=== PATIENT | female | born 1935 | race Two or more races ===

== ENCOUNTER 2024-03-03 23:01 | Inpatient (IN) | payer OTHER, MEDICAID ==
[~2024-03-03] VITALS: Ht 154.9 cm; Wt 81.2 kg
[2024-03-03 23:42] VITALS: PULSE 101; RESP 18; O2SAT 95
[2024-03-04] VITALS (11 sets, daily range): BP systolic 122–152; BP diastolic 33–73; PULSE 74–97; RESP 15–20; TEMP 97.2–98.8; O2SAT 90–97
[2024-03-04 00:23] LABS: Basophils # (auto) 0.1 10 ^3/uL (0-0.2); Eosinophils # (auto) 0.1 10 ^3/uL (0-0.8); Mean Corpuscular Hgb Conc. 32.5 g/dL (32.0-36.0); Monocytes # (auto) 0.5 10 ^3/uL (0-1.3)
[2024-03-04 00:25] LABS: Basophils % (auto) 0.9 % (0.0-2.0); Eosinophils % (auto) 1.5 % (0.0-7.0); Hematocrit 35.3 % (36.0-46.0); Hemoglobin 11.5 g/dL (12.2-16.2); Lymphocytes # (auto) 0.7 10 ^3/uL (0.4-5.4); Lymphocytes % (auto) 8.4 % (10.0-50.0); Mean Corpuscular Volume 80.1 fL (80.0-100.0); Monocytes % (auto) 5.8 % (0.0-12.0); Neutrophils # (auto) 7.2 10 ^3/uL (1.6-8.6); Neutrophils % (auto) 83.4 % (37.0-80.0); Red Cell Distribution Width 16.8 % (11.8-14.3); White Blood Cell 8.6 10^3/uL (4.4-10.8)
[2024-03-04 00:40] LABS: BUN/Creatinine Ratio 13.5 (10.0-20.0); Blood Urea Nitrogen 17 mg/dL (9-23); Glucose 248 mg/dL (74-106)
[2024-03-04 00:49] LABS: Chloride 103 mmol/L (98-107); Potassium 3.7 mmol/L (3.5-5.1); Sodium 138 mmol/L (136-145)
[2024-03-04 00:51] LABS: Anion Gap 6 (5-15); Calcium 8.6 mg/dL (8.7-10.4); Carbon Dioxide 29 mmol/L (20-30)
[2024-03-04] MEDS ORDERED: ALBUTEROL SULF 2.5 MG/0.5ML(0.5%) NEB SOLN NEB PRN (04:00)
[2024-03-04] MEDS ORDERED: MORPHINE SULFATE INJ 2 MG/ml SYRG IV PRN (04:00)
[2024-03-04] MEDS ORDERED: DEXTROSE (50%) 50ML SYRG IV PRN (04:00)
[2024-03-04] MEDS ORDERED: ONDANSETRON HCL 4 MG/2 ML VIAL IV PRN (04:00)
[2024-03-04] MEDS ORDERED: DOCUSATE SOD 100 MG CAP PO PRN (04:00)
[2024-03-04] MEDS ORDERED: IPRATROPIUM BROM 0.5 MG/2.5ML INH SOL NEB PRN (04:00)
[2024-03-04] MEDS ORDERED: NITROGLYCERIN 0.4 MG SL TAB SL PRN (04:00)
[2024-03-04 04:07] LABS: Urine Amorphous Crystal FEW /hpf (None Seen); Urine Bacteria MANY /hpf (None Seen); Urine Blood TRACE /uL (Negative); Urine Clarity Turbid (Clear); Urine Color Colorless (Yellow); Urine Mucus FEW (None Seen); Urine Protein, UAD TRACE (Negative); Urine Specific Gravity 1.009 (1.001-1.035); Urine Urobilinogen 3 mg/dL (Negative); Urine WBC 250 /hpf (0 - 5); Urine WBC Clumps PRESENT /hpf (None Seen); Urine pH 5.5 (5.0-9.0)
[2024-03-04 05:43] LABS: Basophils # (auto) 0.1 10 ^3/uL (0-0.2); Basophils % (auto) 1.1 % (0.0-2.0); Eosinophils # (auto) 0.2 10 ^3/uL (0-0.8); Eosinophils % (auto) 2.5 % (0.0-7.0); Hematocrit 34.5 % (36.0-46.0); Lymphocytes # (auto) 1.4 10 ^3/uL (0.4-5.4); Lymphocytes % (auto) 19.8 % (10.0-50.0); Mean Corpuscular Hemoglobin 25.6 pg (28.0-32.0); Mean Corpuscular Hgb Conc. 31.9 g/dL (32.0-36.0); Mean Corpuscular Volume 80.2 fL (80.0-100.0); Monocytes # (auto) 0.5 10 ^3/uL (0-1.3); Monocytes % (auto) 7.3 % (0.0-12.0); Neutrophils % (auto) 69.3 % (37.0-80.0); Red Cell Distribution Width 16.8 % (11.8-14.3); White Blood Cell 7.2 10^3/uL (4.4-10.8)
[2024-03-04 05:50] LABS: Chloride 103 mmol/L (98-107); Potassium 3.7 mmol/L (3.5-5.1); Sodium 140 mmol/L (136-145)
[2024-03-04 05:51] LABS: Anion Gap 3 (5-15); Calcium 8.6 mg/dL (8.5-10.1); Carbon Dioxide 34 mmol/L (20-30)
[2024-03-04 05:56] LABS: BUN/Creatinine Ratio 14.7 (10.0-20.0); Blood Urea Nitrogen 17 mg/dL (9-23); Glucose 153 mg/dL (74-106)
[2024-03-04] MEDS: InsuLIN REG 1unit/0.01ml Soln (100units/ml) SC SCH (07:00)
[2024-03-04] MEDS: ACCU-CHEK COMFORT CURVE STRIP VI SCH (07:24)
[2024-03-04 08:43] LABS: Amphetamine Screen, Urine Neg (NEGATIVE)
[2024-03-04 08:45] LABS: Barbiturate Scree,Urine Neg (NEGATIVE); Benzodiazephine Screen, Urine Neg (NEGATIVE); Cannabinoid Screen, Urine Neg (NEGATIVE); Cocaine Screen, Urine Neg (NEGATIVE); Opiate Scree,Urine Neg (NEGATIVE); Phencyclidine Screen, Urine Neg (NEGATIVE)
[2024-03-04] MEDS ORDERED: AZIT-74 PO (11:24)
[2024-03-04] MEDS ORDERED: FLUT100M IN (11:27)
[2024-03-04] MEDS: ENOXAPARIN SOD 40 MG/0.4 ML SYRINGE SC SCH (11:59)
[2024-03-04] MEDS: cefTRIAXone 1GM/50ML D5W 50 ML IV SCH (11:59)
[2024-03-04] MEDS ORDERED: ASPI1TAB20 PO (14:38)
[2024-03-04] MEDS ORDERED: GLIP10TA9 PO (14:38)
[2024-03-04] MEDS ORDERED: GABA-1308 PO (14:40)
[2024-03-04] MEDS ORDERED: OMEP20TA PO (14:40)
[2024-03-04] MEDS ORDERED: METO-289 PO (14:41)
[2024-03-04] MEDS ORDERED: ATOR-507 PO (14:41)
[2024-03-04] MEDS ORDERED: OXYB5TAB14 GT (14:43)
[2024-03-04] MEDS ORDERED: HYDR25TA4 PO (14:44)
[2024-03-05 01:00] VITALS: BP 137/63; PULSE 81; RESP 20; TEMP 98.2; O2SAT 96
[2024-03-05 05:00] VITALS: BP 148/60; PULSE 90; RESP 20; TEMP 98.4; O2SAT 91
[2024-03-05 06:16] LABS: Anion Gap 4 (5-15); Calcium 9.1 mg/dL (8.7-10.4); Carbon Dioxide 34 mmol/L (20-30); Chloride 103 mmol/L (98-107); Potassium 3.6 mmol/L (3.5-5.1); Sodium 141 mmol/L (136-145)
[2024-03-05 06:19] LABS: Basophils # (auto) 0.1 10 ^3/uL (0-0.2); Monocytes # (auto) 0.5 10 ^3/uL (0-1.3); Neutrophils # (auto) 3.8 10 ^3/uL (1.6-8.6); Nucleated Red Blood Cells % 0.2 %
[2024-03-05 06:21] LABS: Basophils % (auto) 1.3 % (0.0-2.0); Eosinophils # (auto) 0.4 10 ^3/uL (0-0.8); Eosinophils % (auto) 6.2 % (0.0-7.0); Hematocrit 37.6 % (36.0-46.0); Hemoglobin 11.9 g/dL (12.2-16.2); Lymphocytes # (auto) 1.1 10 ^3/uL (0.4-5.4); Lymphocytes % (auto) 19.5 % (10.0-50.0); Mean Corpuscular Hemoglobin 25.6 pg (28.0-32.0); Mean Corpuscular Hgb Conc. 31.7 g/dL (32.0-36.0); Mean Corpuscular Volume 80.8 fL (80.0-100.0); Monocytes % (auto) 7.9 % (0.0-12.0); Neutrophils % (auto) 65.1 % (37.0-80.0); Red Blood Cells 4.66 10^6/uL (4.0-5.20); Red Cell Distribution Width 17.1 % (11.8-14.3); White Blood Cell 5.8 10^3/uL (4.4-10.8)
[2024-03-05 06:22] LABS: BUN/Creatinine Ratio 12.4 (10.0-20.0); Blood Urea Nitrogen 13 mg/dL (9-23); Glucose 100 mg/dL (74-106)
[2024-03-05 07:37] VITALS: O2SAT 93
[2024-03-05 08:00] VITALS: BP 146/84; PULSE 104; PULSE 97; RESP 20; RESP 22; TEMP 98.7; O2SAT 93; O2SAT 94
[2024-03-05 12:00] VITALS: BP 153/66; PULSE 103; RESP 20; TEMP 98.7; O2SAT 94
[2024-03-05] MEDS: SODIUM CHLORIDE 0.9% 250 ML IV SCH (13:30)
[2024-03-05 16:00] VITALS: BP 146/60; PULSE 100; RESP 20; TEMP 97.7; O2SAT 97
[2024-03-05] MEDS: ACETAMINOPHEN 325 MG TAB PO PRN (16:48)
== END 2024-03-05 18:42 | disposition home or self-care (01) | DRG 189 ==
LOC: ER 23:01 → TELE 03-04 04:00 → TELE-EAST 03-04 08:19
PROVIDERS: ADMIT Nurse Practitioner Family; ATTEND Nurse Practitioner Family
DX: J96.21 Acute and chronic respiratory failure with hypoxia (principal); G93.41 Metabolic encephalopathy; J44.1 Chronic obstructive pulmonary disease with (acute) exacerbation; N39.0 Urinary tract infection, site not specified; E11.65 Type 2 diabetes mellitus with hyperglycemia; E66.9 Obesity, unspecified; F03.90 Unspecified dementia, unspecified severity, without behavioral disturbance, psychotic disturbance, mood disturbance, and anxiety; I10 Essential (primary) hypertension; Z99.81 Dependence on supplemental oxygen; Z79.82 Long term (current) use of aspirin; Z79.899 Other long term (current) drug therapy; Z68.33 Body mass index [BMI] 33.0-33.9, adult; Z86.73 Personal history of transient ischemic attack (TIA), and cerebral infarction without residual deficits
CPT/HCPCS: 36415; 71045; 80048; 80307; 81001; 82306; 82607; 82962; 83036; 83880; 84443; 84484; 85025; 87040; 87086; 93005; 93306; 96365; 96372; 97110; 97116; 97163; 97530; G0378; J1815

== ENCOUNTER 2024-08-21 20:16 | Inpatient (IN) | payer OTHER, MEDICAID ==
[~2024-08-21] VITALS: Ht 160 cm; Wt 88.4 kg
[~2024-08-21 20:16] MED LIST: ASPI1TAB20 PO; ATOR-507 PO; AZIT-74 PO; FLUT100M IN; GABA-1308 PO; GLIP10TA9 PO; HYDR25TA4 PO; METO-289 PO; OMEP20TA PO; OXYB5TAB14 GT
--- NOTE | 2024-08-21 20:47 | ED.PDOC ---
SOB-HPI HPI Comments 89-year-old female who came to ER via EMS for shortness of breath. Patient does have history of hypertension, dyslipidemia, and asthma. Was noted by family members that patient has been having flu-like symptoms past 36 hours, fever, chills, weakness, myalgia, productive cough, and progressively worsening shortness of breath. Patient was noted to be saturating 88% on room air. Patient was given breathing treatments while EN route to the emergency room Chief Complaint: Shortness of Breath Time Seen by MD: 20:46 Reviewed notes: Records Administrator Notes Information Source: Patient, Emergency Med Personnel Mode of Arrival: EMS Severity: Moderate Timing: Hours Duration: Intermittent Context: With Light Exertion PE Risk Factors: None History of: None Prehospital treatment: Breathing Tx Modifying Factors: Nothing Associated Signs and Symptoms: Fever, Cough If cough with SOB: Productive Past Medical History PAST MEDICAL HISTORY: Arthritis, Asthma, CVA, High Lipids, HTN Surgical History: Denies all surgeries BID CLERK History: No Pertinent BID CLERK History Family History Family History: Reviewed,noncontributory to illness Social History Smoker: Non-Smoker Alcohol: Denies ETOH Use Drugs: Denies Drug Use Lives In: Home Constitutional: reports: fatigue, malaise, weakness; denies: chills, diaphoresis, fever, sweats, others EENTM: denies: blurred vision, double vision, ear bleeding, ear discharge, ear drainage, ear pain, ear ringing, eye pain, eye redness, hearing loss, mouth pain, mouth swelling, nasal discharge, nose bleeding, nose congestion, nose pain, photophobia, tearing, throat pain, throat swelling, voice changes, others Respiratory: reports: cough, SOB at rest, shortness of breath, SOB with excertion; denies: hemoptysis, orthopnea, stridor, wheezing, others Cardiovascular: denies: chest pain, dizzy spells, diaphoresis, Dyspnea on exertion, edema, irregular heart beat, left arm pain, lightheadedness, palpitations, PND, syncope, others Gastrointestinal: denies: abdomen distended, abdominal pain, blood streaked bowels, constipated, diarrhea, dysphagia, difficulty swallowing, hematemesis, melena, nausea, poor appetite, poor fluid intake, rectal bleeding, rectal pain, vomiting, others Genitourinary: denies: abnormal vagina bleeding, burning, dyspareunia, dysuria, flank pain, frequency, hematuria, incontinence, pain, , vagina discharge, urgency, others Neurological: denies: dizziness, fainting, headache, left sided numbness, left sided weakness, numbness, paresthesia, pre-existing deficit, right sided numbness, right sided weakness, seizure, speech problems, tingling, tremors, weakness, others Musculoskeletal: denies: back pain, gout, joint pain, joint swelling, muscle pain, muscle stiffness, neck pain, others Integumetry: denies: bruises, change in color, change in hair/nails, dryness, laceration, lesions, lumps, rash, wounds, others Allergic/Immunocompromised: denies: Difficulty Healing, Frequent Infections, Hives, Itching, others Hematologic/Lymphatic: denies: anemia, blood clots, easy bleeding, easy bruising, swollen glands, others Endocrine: denies: excessive hunger, excessive sweating, excessive thirst, excessive urination, flushing, intolerance to cold, intolerance to heat, unexplained weight gain, unexplained weight loss, others Psychiatric: denies: anxiety, bipolar disorder, depression, hopeless, panic disorder, schizophrenia, sleepless, suicidal, others Physical Exam General Appearance: No Apparent Distress, Normal HEENT: Normal ENT Inspection, Pharynx Normal, TMs Normal Neck: Full Range of Motion, Non-Tender, Normal, Normal Inspection Respiratory: Chest Non-Tender, Lungs Clear, No Accessory Muscle Use, No Respiratory Distress, Normal Breath Sounds Cardiovascular: No Edema, No JVD, No Murmur, No Gallop, Normal Peripheral Pulses, Regular Rate/Rhythm Breast Exam: Deferred Gastrointestinal: No Organomegaly, Non Tender, No Pulsatile Mass, Normal Bowel Sounds, Soft Genitalia: Deferred Pelvic: Deferred Rectal: Deferred Extremities: No calf tenderness, Normal capillary refill, Normal inspection, Normal range of motion, Non-tender, No pedal edema Musculoskeletal : Apperance: Normal Neurologic: Alert, floor covering printer assistant II-XII nml as Tested, No Motor Deficits, Normal Affect, Normal Mood, No Sensory Deficits Cerebellar Function: Normal Reflexes: Normal Skin: Dry, Normal Color, Warm Lymphatic: No Adenopathy Was a procedure done? Was a procedure done?: No Differential Dx Differential Diagnosis: Asthma, Bronchitis, CHF, COPD, Myocardial infarction, Pneumonia, Respiratory Distress, Pharyngitis, URI, Other (Influenza, COVID-19) X-Ray, Labs, Meds, VS Vital Signs Date Time Temp Pulse Resp B/P (MAP) Pulse Ox O2 Delivery O2 Flow Rate FiO2 08/21/24 20:25 99.0 100 22 158/68 (98) 97 08/21/24 20:24 112 Lab Test 08/21/24 23:00 08/21/24 21:50 08/21/24 20:43 Range/Units Influenza Type A Antigen Negative Negative Influenza Type B Antigen Negative Negative Troponin I High Sensitivity 20 21 </=34 ng/L White Blood Count 6.8 4.4-10.8 10^3/uL Red Blood Count 4.50 4.0-5.20 10^6/uL Hemoglobin 11.9 L 12.2-16.2 g/dL Hematocrit 37.0 36.0-46.0 % Mean Corpuscular Volume 82.2 80.0-100.0 fL Mean Corpuscular Hemoglobin 26.3 L 28.0-32.0 pg Mean Corpuscular Hemoglobin Concent 32.0 32.0-36.0 g/dL Red Cell Distribution Width 16.3 H 11.8-14.3 % Platelet Count 226 140-450 10^3/uL Mean Platelet Volume 8.5 6.9-10.8 fL Neutrophils (%) (Auto) 81.3 H 37.0-80.0 % Lymphocytes (%) (Auto) 10.7 10.0-50.0 % Monocytes (%) (Auto) 6.8 0.0-12.0 % Eosinophils (%) (Auto) 0.5 0.0-7.0 % Basophils (%) (Auto) 0.7 0.0-2.0 % Neutrophils # (Auto) 5.5 1.6-8.6 10 ^3/uL Lymphocytes # (Auto) 0.7 0.4-5.4 10 ^3/uL Monocytes # (Auto) 0.5 0-1.3 10 ^3/uL Eosinophils # (Auto) 0 0-0.8 10 ^3/uL Basophils # (Auto) 0 0-0.2 10 ^3/uL Nucleated Red Blood Cells 0.1 % Sodium Level 141 136-145 mmol/L Potassium Level 3.6 3.5-5.1 mmol/L Chloride Level 103 98-107 mmol/L Carbon Dioxide Level 32 H 20-31 mmol/L Anion Gap 6 5-15 Blood Urea Nitrogen 17 9-23 mg/dL Creatinine 1.44 H 0.550-1.02 mg/dL Glomerular Filtration Rate Calc 35 >90 mL/min BUN/Creatinine Ratio 11.8 10.0-20.0 Serum Glucose 165 H 74-106 mg/dL Calcium Level 8.9 8.7-10.4 mg/dL Total Bilirubin 0.5 0.2-1.0 mg/dL Aspartate Amino Transferase (AST) 15 13-40 U/L Alanine Aminotransferase (ALT) < 9 7-40 U/L Alkaline Phosphatase 97 46-116 U/L B-Type Natriuretic Peptide 375.99 0-100 pg/mL Total Protein 6.9 5.7-8.2 g/dL Albumin 4.0 3.2-4.8 g/dL Current Medications Medications (Trade) Dose Ordered Sig/Luiz Route Start Time Stop Time Status Last Admin Prednisone 40 mg ONCE ONCE PO 08/21/24 20:45 08/21/24 20:46 DC 08/21/24 21:21 Albuterol (Ventolin Medneb) 5 mg ONCE ONCE NEB 08/21/24 20:45 08/21/24 20:46 DC 08/21/24 20:55 Time of 1ST Reevaluation: 20:43 Reevaluation 1ST: Unchanged Time of 2ND Reevaluation: 00:00 Reevaluation 2ND: Unchanged Patient Education/Counseling: Diagnosis, Treatment Family Education/Counseling: No Family Present Departure 1 Departure Time of Disposition: 00:00 Impression: Primary Impression: Respiratory failure with hypoxia Additional Impressions: Asthma exacerbation Pneumonia Disposition: ADMITTED INPATIENT Admit to: Med Surg Condition: Guarded Critical Care Note Critical Care Time?: Yes (35 min-critical care time only) Critical care comment: Shortness of breath Total critical care time: Approximately 36 minutes Due to a high probability of clinically significant, life threatening deterioration, the patient required my highest level of preparedness to i ntervene emergently and I personally spent this critical care time directly and personally managing the patient. This critical care time included obtaining a history; examining the patient; pulse oximetry; ordering and review of studies; arranging urgent treatment with development of a management plan; evaluation of patient's response to treatment; frequent reassessment; and, discussions with other providers. This critical care time was performed to assess and manage the high probability of imminent, life-threatening deterioration that could result in multi-organ failure. It was exclusive of separately billable procedures and treating other patients. Stability Stability form required: No Heart Score Heart Score: Heart Score Response (Comments) Value History Moderate Suspicious 1 EKG Repolarization Disturb 1 Age >65 2 Risk Factors >3 or Hx ASHD 2 Troponin Normal limit 0 Total 6 I personally scribed for JAIME COPELAND MD ([email or web address]) on 08/21/24 at 20:47. Electronically submitted by Marcelo Phelan ([email or web address]). JAIME COPELAND MD Aug 21, 2024 20:47
[2024-08-21] MEDS: ALBUTEROL SULF 2.5 MG/0.5ML(0.5%) NEB SOLN NEB ONE (20:55)
[2024-08-21 20:59] LABS: Eosinophils # (auto) 0 10 ^3/uL (0-0.8); Eosinophils % (auto) 0.5 % (0.0-7.0); Lymphocytes # (auto) 0.7 10 ^3/uL (0.4-5.4); Monocytes # (auto) 0.5 10 ^3/uL (0-1.3); Nucleated Red Blood Cells % 0.1 %
[2024-08-21 21:01] LABS: Basophils # (auto) 0 10 ^3/uL (0-0.2); Basophils % (auto) 0.7 % (0.0-2.0); Hemoglobin 11.9 g/dL (12.2-16.2); Lymphocytes % (auto) 10.7 % (10.0-50.0); Mean Corpuscular Hemoglobin 26.3 pg (28.0-32.0); Mean Corpuscular Volume 82.2 fL (80.0-100.0); Monocytes % (auto) 6.8 % (0.0-12.0); Neutrophils # (auto) 5.5 10 ^3/uL (1.6-8.6); Neutrophils % (auto) 81.3 % (37.0-80.0); Platelet Count (auto) 226 10^3/uL (140-450); Red Cell Distribution Width 16.3 % (11.8-14.3); White Blood Cell 6.8 10^3/uL (4.4-10.8)
--- NOTE | 2024-08-21 21:07 | DVH ---
CHEST RADIOGRAPH Indication: SOB Technique: Single frontal view of the chest was obtained Comparison: XY CHEST PORTABLE on DOS: 03/04/24 FINDINGS: Lines and Tubes: None Lungs: No focal consolidation. Bronchovascular crowding due to low lung volumes bibasilar linear dens ities. Pleura: No effusion. No pneumothorax. Cardiomediastinal contours: Mild cardiomegaly with moderate atherosclerotic calcification and uncoili ng of the aorta. Bones: No acute osseous abnormality. IMPRESSION: Bronchovascular crowding due to low lung volumes with bibasilar atelectasis. Underlying mild pulmona ry vascular congestion can not be excluded.
[2024-08-21] MEDS: predniSONE 20 MG TAB PO ONE (21:21)
[2024-08-21 21:28] LABS: Alkaline Phosphatase 97 U/L (46-116); Anion Gap 6 (5-15); Aspartate Aminotransferase 15 U/L (13-40); BUN/Creatinine Ratio 11.8 (10.0-20.0); Bilirubin, Total 0.5 mg/dL (0.2-1.0); Blood Urea Nitrogen 17 mg/dL (9-23); Calcium 8.9 mg/dL (8.7-10.4); Chloride 103 mmol/L (98-107); Potassium 3.6 mmol/L (3.5-5.1); Sodium 141 mmol/L (136-145); Total Protein 6.9 g/dL (5.7-8.2)
[2024-08-21 21:29] LABS: Alanine Aminotransferase < 9 U/L (7-40); Carbon Dioxide 32 mmol/L (20-31); Glucose 165 mg/dL (74-106)
[2024-08-21 23:55] LABS: Rapid Influenza A Negative (Negative); Rapid Influenza B Negative (Negative)
[2024-08-22] VITALS (17 sets, daily range): BP systolic 109–164; BP diastolic 28–57; PULSE 103–121; RESP 16–29; TEMP 99.4–100.4; O2SAT 92–99
[2024-08-22] MEDS ORDERED: MORPHINE SULFATE INJ 2 MG/ml SYRG IV PRN (01:00)
[2024-08-22] MEDS ORDERED: DOCUSATE SOD 100 MG CAP PO PRN (01:00)
[2024-08-22] MEDS ORDERED: NITROGLYCERIN 0.4 MG SL TAB SL PRN (01:00)
[2024-08-22] MEDS ORDERED: ONDANSETRON HCL 4 MG/2 ML VIAL IV PRN (01:00)
[2024-08-22] MEDS: ALBUTEROL SULF 2.5 MG/0.5ML(0.5%) NEB SOLN NEB SCH (02:20)
[2024-08-22] MEDS: IPRATROPIUM BROM 0.5 MG/2.5ML INH SOL NEB SCH (02:21)
--- NOTE | 2024-08-22 03:17 | DVHHP2 ---
JACLYN JOHN MINE EQUIPMENT DESIGN ENGINEER 08/22/24 0317: History of Present Illness Reason for Visit: flu like symptoms History of Present Illness Information in this HPI is limited due to patient's current cognitive status.Acquired with the assistance of the patient's daughter at the bedside. 81-year-old female history of hypertension, dementia, DM, , Intermittent oxygen use Present with complaints of flu like symptoms, Muscle aches, Generalized weakness, Hypoxia Times two days. Sick Contact was endorsed. Patient daughter states, She checked the patient's oxygen saturation And it was lower than normal. Started her on oral prednisone And zithromax provided by her University Services Program Associate. This time there are no complaints of chest pain, nausea, vomiting, diarrhea. Cardiovascular: HTN Pulmonary: Asthma WIRE PREPARATION WORKER: Dementia Endocrine: Diabetes Smoke: No ALCOHOL: none Drugs: None Lives: with Family Review of Systems Constitutional: Yes: Weakness, Malaise; No: Fever, Chills, Sweats, Other Eyes: No: Pain, Vision change, Conjunctivae inflammation, Eyelid inflammation, Other, Redness ENT: No: Ear pain, Ear discharge, Nose pain, Nose discharge, Nose congestion, Mouth pain, Mouth swelling, Throat pain, Throat swelling, Other Respiratory: Cough, Shortness of breath; No: Dry, SOB with excertion, Wheezing, Hemoptysis, Pleuritic Pain, Sputum, Wheezing, Other Cardiovascular: No: Chest Pain, Palpitations, Orthopnea, Paroxysmal Noc. Dyspnea, Edema, Lt Headedness, Other Gastrointestinal: No: Nausea, Vomiting, Abdominal Pain, Diarrhea, Constipation, Melena, Hematochezia, Other Genitourinary: No Dysuria, No Frequency, No Incontinence, No Hematuria, No Retention, No Other Musculoskeletal: No: other, neck pain, shoulder pain, arm pain, back pain, hand pain, leg pain, foot pain Skin: No: Rash, Lesions, Jaundice, Bruising, Other Neurological: No: Weakness, Numbness, Incoordination, Change in speech, Confusion, Seizures, Other Allergies: Coded Allergies: NO KNOWN ALLERGIES (Unverified , 03/04/24) Medications Current Medications Medications Dose Ordered Sig/Luiz Route Start Time Stop Time Status Last Admin Dose Admin Docusate Sodium 100 mg BIDPRN PRN PO 08/22/24 01:00 Acetaminophen/ Hydrocodone Bitart 1 tab Q4HP PRN PO 08/22/24 01:00 Ondansetron HCl 4 mg Q4HP PRN IV 08/22/24 01:00 UNV Nitroglycerin 0.4 mg Q5MINP PRN SL 08/22/24 01:00 Morphine Sulfate 2 mg Q30M PRN IV 08/22/24 01:00 Pantoprazole Sodium 40 mg DAILY IV 08/22/24 10:00 Prednisone 40 mg DAILY PO 08/22/24 10:00 Doxycycline Monohydrate 100 mg BID PO 08/22/24 10:00 Albuterol 2.5 mg Q4HR NEB 08/22/24 02:00 08/22/24 02:20 2.5 MG Ipratropium [place] 0.5 mg Q4HR NEB 08/22/24 02:00 08/22/24 02:21 0.5 MG Heparin Sodium (Porcine) 5,000 units Q12HR SC 08/22/24 10:00 UNV Exam Vital Signs Vital Signs Date Time Temp Pulse Resp B/P (MAP) Pulse Ox O2 Delivery O2 Flow Rate FiO2 08/22/24 02:23 103 17 99 08/22/24 02:17 Nasal Cannula* 2 28 08/21/24 20:25 99.0 158/68 (98) General Appearance: Alert, mild distress HEENT: Atraumatic, PERRLA, EOMI Respiratory: Normal air movement Cardiovascular: Regular rate, Normal S1, Normal S2 Abdominal: Normal bowel sounds, Soft, No tenderness Extremities: No cyanosis, No edema Skin: No breakdown Neuro: Other (At baseline) Labs/Xrays Labs Test 08/21/24 23:00 08/21/24 21:50 08/21/24 20:43 Range/Units Influenza Type A Antigen Negative Negative Influenza Type B Antigen Negative Negative Troponin I High Sensitivity 20 </=34 ng/L White Blood Count 6.8 4.4-10.8 10^3/uL Red Blood Count 4.50 4.0-5.20 10^6/uL Hemoglobin 11.9 L 12.2-16.2 g/dL Hematocrit 37.0 36.0-46.0 % Mean Corpuscular Volume 82.2 80.0-100.0 fL Mean Corpuscular Hemoglobin 26.3 L 28.0-32.0 pg Mean Corpuscular Hemoglobin Concent 32.0 32.0-36.0 g/dL Red Cell Distribution Width 16.3 H 11.8-14.3 % Platelet Count 226 140-450 10^3/uL Mean Platelet Volume 8.5 6.9-10.8 fL Neutrophils (%) (Auto) 81.3 H 37.0-80.0 % Lymphocytes (%) (Auto) 10.7 10.0-50.0 % Monocytes (%) (Auto) 6.8 0.0-12.0 % Eosinophils (%) (Auto) 0.5 0.0-7.0 % Basophils (%) (Auto) 0.7 0.0-2.0 % Neutrophils # (Auto) 5.5 1.6-8.6 10 ^3/uL Lymphocytes # (Auto) 0.7 0.4-5.4 10 ^3/uL Monocytes # (Auto) 0.5 0-1.3 10 ^3/uL Eosinophils # (Auto) 0 0-0.8 10 ^3/uL Basophils # (Auto) 0 0-0.2 10 ^3/uL Nucleated Red Blood Cells 0.1 % Sodium Level 141 136-145 mmol/L Potassium Level 3.6 3.5-5.1 mmol/L Chloride Level 103 98-107 mmol/L Carbon Dioxide Level 32 H 20-31 mmol/L Anion Gap 6 5-15 Blood Urea Nitrogen 17 9-23 mg/dL Creatinine 1.44 H 0.550-1.02 mg/dL Glomerular Filtration Rate Calc 35 >90 mL/min BUN/Creatinine Ratio 11.8 10.0-20.0 Serum Glucose 165 H 74-106 mg/dL Calcium Level 8.9 8.7-10.4 mg/dL Total Bilirubin 0.5 0.2-1.0 mg/dL Aspartate Amino Transferase (AST) 15 13-40 U/L Alanine Aminotransferase (ALT) < 9 7-40 U/L Alkaline Phosphatase 97 46-116 U/L B-Type Natriuretic Peptide 375.99 0-100 pg/mL Total Protein 6.9 5.7-8.2 g/dL Albumin 4.0 3.2-4.8 g/dL Assessment/Plan Assessment/Plan Acute on chronic respiratory failure with hypoxia CV 19 r/o Generalized weakness DM Plan Admit telemetry Consult pulmonology. Bronchodilators. As needed supplemental O2 to maintain O2 saturation greater Umu 93%. RT monitoring. Covid swab pending. Blood glucose checks ACHS with regular insulin sliding scale coverage for optimal glycemic management. Physical therapy evaluation GI ppx protonix / DVT ppx heparin sq Plan discussed with: Patient My Orders Orders - JACLYN JOHN NP Procedure Category Date Status Time Admit ADMIT 08/22/24 Transmitted 00:55 Code Status CODE 08/22/24 Transmitted 00:55 Vital Signs SWATI 08/22/24 In Process 00:55 Review Orders With SWATI 08/22/24 In Process Adm.Md 00:55 Encourage Activity As SWATI 08/22/24 In Process Tolerate 00:55 Consistent DIET 08/22/24 Transmitted Carb(Ccho)Diabetes Breakfast Oxygen By Face Mask RT 08/22/24 Transmitted 00:55 Docusate Sodium PHA 08/22/24 In Process Capsule (Colace 01:00 Notify Of Changes BANNER 08/22/24 In Process From Base 00:55 Advance Directive SWATI 08/22/24 In Process 00:55 Basic Metabolic Panel LAB 08/22/24 Logged 05:00 Basic Metabolic Panel LAB 08/23/24 Verified 05:00 Basic Metabolic Panel LAB 08/24/24 Verified 05:00 Complete Blood Count LAB 08/22/24 Logged 05:00 Complete Blood Count LAB 08/23/24 Verified 05:00 Complete Blood Count LAB 08/24/24 Verified 05:00 Patient Condition ORDERS 08/22/24 Transmitted 00:55 Allergies SWATI 08/22/24 In Process 00:55 Hydrocodone-Acet PHA 08/22/24 In Process 5/325mg Tab ([place] 01:00 Ondansetron Hcl PHA 08/22/24 Pending (Zofran) 01:00 Sequential SWATI 08/22/24 In Process Compression Device Nitroglycerin PHA 08/22/24 In Process Sublingual (Ntrostat 01:00 Morphine Sulfate PHA 08/22/24 In Process Injection 01:00 Stat Ekg For Chest BANNER 08/22/24 In Process Pain 00:55 Notify Of Changes BANNER 08/22/24 In Process From Base 00:55 Extractor Puller For BANNER 08/22/24 In Process 24 Hours 00:55 Emergency Dysrhythmia BANNER 08/22/24 In Process Protocol 00:55 Rhythm Strips Once SWATI 08/22/24 In Process Every Shift 00:55 Oxygen By Nasal RT 08/22/24 Transmitted Cannula 00:55 Pantoprazole PHA 08/22/24 In Process (Protonix) 10:00 Prednisone Tablet PHA 08/22/24 In Process 10:00 Doxycycline Tablet PHA 08/22/24 In Process (Vibramycin Tablet) 10:00 Covid19 Antigen Alisha LAB 08/22/24 Logged Albuterol Medneb PHA 08/22/24 In Process (Ventolin Medneb) 02:00 Ipratropium Medneb PHA 08/22/24 In Process (Atrovent Medneb) 02:00 *Consult CONS 08/22/24 Transmitted / 00:55 Heparin Sodium PHA 08/22/24 Pending (Porcine) 10:00 Date of Service: Aug 22, 2024 Billing Provider: JACOB FOSS MD Common Visit Codes: NOT BILLABLE JACOB FOSS MD 08/22/24 1711: Review of Systems Allergies: Coded Allergies: NO KNOWN ALLERGIES (Unverified , 03/04/24) Additional Comments Additional Comments Additional Comments 89-year-old female with a known history of Alzheimer dementia, diabetes mellitus type 2, hypertension, dyslipidemia, peripheral neuropathy, chronic asthma needs represents the hospital with increasing shortness a breath found to have 1. Acute on chronic hypoxic respiratory failure secondary to acute asthma exacerbation 2. Acute asthma exacerbation acute 3. Bilateral atelectasis 4. Diabetes mellitus type 2 5. Hypertension 6. Dyslipidemia next 7. Peripheral neuropathy 8. Alzheimer dementia -incentive spirometry, percussion therapy, IV Solu-Medrol , IV antibiotics med nebs-physical therapy evaluation and treatment O2 supplementation Discharge plan JACLYN JOHN NP Aug 22, 2024 03:17 JACOB FOSS MD Aug 22, 2024 17:11
[2024-08-22] MEDS: cefTRIAXone 1GM/50ML D5W 50 ML IV ONE (05:44)
[2024-08-22] MEDS: AZITHROMYCIN 500MG/ 250ML 250 ML IV ONE (05:44)
[2024-08-22 06:57] LABS: Basophils # (auto) 0 10 ^3/uL (0-0.2); Eosinophils # (auto) 0 10 ^3/uL (0-0.8); Hemoglobin 11.6 g/dL (12.2-16.2); Lymphocytes # (auto) 0.2 10 ^3/uL (0.4-5.4); Mean Corpuscular Volume 82.2 fL (80.0-100.0); Monocytes # (auto) 0.1 10 ^3/uL (0-1.3); Monocytes % (auto) 1.2 % (0.0-12.0); Neutrophils # (auto) 5.8 10 ^3/uL (1.6-8.6); White Blood Cell 6.1 10^3/uL (4.4-10.8)
[2024-08-22 07:02] LABS: Basophils % (auto) 0.4 % (0.0-2.0); Hematocrit 35.9 % (36.0-46.0); Lymphocytes % (auto) 3.5 % (10.0-50.0); Mean Corpuscular Hemoglobin 26.6 pg (28.0-32.0); Mean Corpuscular Hgb Conc. 32.4 g/dL (32.0-36.0); Neutrophils % (auto) 94.9 % (37.0-80.0); Nucleated Red Blood Cells % 0.1 %; Platelet Count (auto) 218 10^3/uL (140-450); Red Blood Cells 4.37 10^6/uL (4.0-5.20); Red Cell Distribution Width 16.3 % (11.8-14.3)
[2024-08-22 07:23] LABS: Calcium 9.1 mg/dL (8.7-10.4)
[2024-08-22 07:24] LABS: Anion Gap 9 (5-15); Carbon Dioxide 29 mmol/L (20-31)
[2024-08-22 07:29] LABS: BUN/Creatinine Ratio 14.5 (10.0-20.0); Blood Urea Nitrogen 22 mg/dL (9-23)
[2024-08-22 08:59] LABS: Chloride 100 mmol/L (98-107); Glucose 310 mg/dL (74-106); Potassium 3.7 mmol/L (3.5-5.1); Sodium 138 mmol/L (136-145)
--- NOTE | 2024-08-22 10:24 | DVHINCON2 ---
Date of service: Aug 22, 2024 Referring Physician TANIA Reynolds. Reason for Consultation Acute on chronic hypoxic respiratory failure History of Present Illness 89-year-old woman history of hypertension, asthma, dementia, diabetes mellitus type 2 who presented with flu-like symptoms, muscle aches and generalized weakness. She was hypoxic for two days. Recent sick contacts. She was initiated on home steroid and antibiotic course that was provided by pulmonary physician. She denies any chest pain, nausea, vomiting or diarrhea. Pulmonary consultation is called due to acute on chronic hypoxic respiratory failure. Review of systems: 14 point review of systems is negative unless otherwise noted above. Past medical history: Hypertension, asthma, dementia, diabetes mellitus type 2 Past surgical history: None mentioned in prior surgeries. Medications: Reviewed Allergies: No known drug allergies. Family history: No family history of premature CAD. No family history of lung disease Social history: Nonsmoker. No alcohol or illicit drug use. Family History: Patient reports no known family medical history. Allergies: Coded Allergies: NO KNOWN ALLERGIES (Unverified , 03/04/24) Home Meds Active Scripts Fluticasone-Salmeterol (Advair Diskus 100-50 Mcg/Dose) 1 Aer Aer, 1 AER IN BIDP PRN for 30 Days, #1 AER Prov:AYUSH MURCIA MD 03/04/24 Azithromycin (Zithromax) 250 Mg Tab, 250 MG PO DAILY for 5 Days, #5 TAB Prov:AYUSH MURCIA MD 03/04/24 Reported Medications Hydrochlorothiazide (Hydrochlorothiazide) 25 Mg Tab, 1 TAB PO DAILY, #30 TAB 5 Refills 03/04/24 Oxybutynin Chloride (Oxybutynin Chloride) 5 Mg Tab, 5 MG GT, TAB 03/04/24 Metoprolol Succinate (Metoprolol Succinate Er) 50 Mg Tab, 1 TAB PO DAILY, #30 TAB 5 Refills 03/04/24 Atorvastatin Calcium (Lipitor) 40 Mg Tab, 1 TAB PO QPM, #90 TAB 1 Refill 03/04/24 Gabapentin (Gabapentin) 100 Mg Cap, 100 MG PO, CAP 03/04/24 Omeprazole (Gnp Omeprazole) 20 Mg Tab, 20 MG PO, TAB 03/04/24 Glipizide (Glipizide) 10 Mg Tab, 1 TAB PO BID, #60 TAB 5 Refills 03/04/24 Aspirin (Aspir-81) 81 Mg Tab, 1 TAB PO DAILY, #30 TAB 5 Refills 03/04/24 Current Medications Current Medications Medications (Trade) Dose Ordered Sig/Luiz Route PRN Reason Start Time Stop Time Status Last Admin Docusate Sodium (Colace Capsule) 100 mg BIDPRN PRN PO FOR CONSTIPATION 08/22/24 01:00 Acetaminophen/ Hydrocodone Bitart ([place] 5/325MG Tab) 1 tab Q4HP PRN PO MODERATE PAIN (4-6 PAIN SCALE) 08/22/24 01:00 Ondansetron HCl (Zofran) 4 mg Q4HP PRN IV NAUSEA / VOMITING 08/22/24 01:00 Nitroglycerin (Ntrostat Sublingual) 0.4 mg Q5MINP PRN SL FOR CHEST PAIN 08/22/24 01:00 Morphine Sulfate 2 mg Q30M PRN IV FOR CHEST PAIN 08/22/24 01:00 Pantoprazole Sodium (Protonix) 40 mg DAILY IV 08/22/24 10:00 Prednisone 40 mg DAILY PO 08/22/24 10:00 Doxycycline Monohydrate (Vibramycin Tablet) 100 mg BID PO 08/22/24 10:00 Albuterol (Ventolin Medneb) 2.5 mg Q4HR [facility] 08/22/24 02:00 08/22/24 07:05 Ipratropium [place] (Atrovent Medneb) 0.5 mg Q4HR [facility] 08/22/24 02:00 08/22/24 07:05 Heparin Sodium (Porcine) 5,000 units Q12HR SC 08/22/24 10:00 Vital Signs Vital Signs Date Time Temp Pulse Resp B/P (MAP) Pulse Ox O2 Delivery O2 Flow Rate FiO2 08/22/24 08:57 100.4 109 18 138/57 94 3.0 32 100.4 08/22/24 07:05 Nasal Cannula* Physical Exam Gen.: Patient lying in bed in no apparent distress. On supplemental oxygen. Head: Normocephalic, atraumatic Eyes: EOMI/PERRLA. Ears: Normal hearing. Normal anatomy. Neck/trachea: Trachea midline, supple. Nose: Normal external anatomy. Mouth: Moist mucous membranes. Chest: Fair air entry bilaterally. No wheezing or rhonchi. Cardio vascular: Positive S1, positive S2. Regular rate and rhythm. Abdomen: Positive bowel sounds in all 4 quadrants. Soft, non-tender, non- distended. : Deferred. Rectal: Deferred Skin: Warm, dry. Extremities: 2+ radial pulses bilaterally. No lower extremity edema. Neuro: Awake, alert. No gross motor or sensory deficits. Cranial nerves II through XII intact. Gait not assessed. Labs/Diagnostic Data Labs Test 08/22/24 06:30 08/21/24 23:00 08/21/24 21:50 08/21/24 20:43 Range/Units White Blood Count 6.1 4.4-10.8 10^3/uL Red Blood Count 4.37 4.0-5.20 10^6/uL Hemoglobin 11.6 L 12.2-16.2 g/dL Hematocrit 35.9 L 36.0-46.0 % Mean Corpuscular Volume 82.2 80.0-100.0 fL Mean Corpuscular Hemoglobin 26.6 L 28.0-32.0 pg Mean Corpuscular Hemoglobin Concent 32.4 32.0-36.0 g/dL Red Cell Distribution Width 16.3 H 11.8-14.3 % Platelet Count 218 140-450 10^3/uL Mean Platelet Volume 8.7 6.9-10.8 fL Neutrophils (%) (Auto) 94.9 H 37.0-80.0 % Lymphocytes (%) (Auto) 3.5 L 10.0-50.0 % Monocytes (%) (Auto) 1.2 0.0-12.0 % Eosinophils (%) (Auto) 0.0 0.0-7.0 % Basophils (%) (Auto) 0.4 0.0-2.0 % Neutrophils # (Auto) 5.8 1.6-8.6 10 ^3/uL Lymphocytes # (Auto) 0.2 L 0.4-5.4 10 ^3/uL Monocytes # (Auto) 0.1 0-1.3 10 ^3/uL Eosinophils # (Auto) 0 0-0.8 10 ^3/uL Basophils # (Auto) 0 0-0.2 10 ^3/uL Nucleated Red Blood Cells 0.1 % Sodium Level 138 136-145 mmol/L Potassium Level 3.7 3.5-5.1 mmol/L Chloride Level 100 98-107 mmol/L Carbon Dioxide Level 29 20-31 mmol/L Anion Gap 9 5-15 Blood Urea Nitrogen 22 9-23 mg/dL Creatinine 1.52 H 0.550-1.02 mg/dL Glomerular Filtration Rate Calc 33 >90 mL/min BUN/Creatinine Ratio 14.5 10.0-20.0 Serum Glucose 310 H 74-106 mg/dL Calcium Level 9.1 8.7-10.4 mg/dL Influenza Type A Antigen Negative Negative Influenza Type B Antigen Negative Negative Troponin I High Sensitivity 20 </=34 ng/L Total Bilirubin 0.5 0.2-1.0 mg/dL Aspartate Amino Transferase (AST) 15 13-40 U/L Alanine Aminotransferase (ALT) < 9 7-40 U/L Alkaline Phosphatase 97 46-116 U/L B-Type Natriuretic Peptide 375.99 0-100 pg/mL Total Protein 6.9 5.7-8.2 g/dL Albumin 4.0 3.2-4.8 g/dL Assessment Impression: Acute on chronic hypoxic respiratory failure Asthma exacerbation Pneumonia Atelectasis Morbid obesity with a BMI 53.5 Acute kidney injury Plan: Chest x-ray imaging report reviewed. Hypoinflation. Bibasilar atelectasis. Mild pulmonary vascular congestion. Influenza type a and B negative. Supplemental oxygen On 3 liters/minute via nasal cannula. Keep O2 saturation above 92%. Continue antibiotics. Continue bronchodilators. Continue steroid course. Monitor renal function. Monitor ins and outs. Monitor electrolytes. Supplement as necessary. DVT prophylaxis: Heparin subQ. GI prophylaxis with Protonix. Prognosis: Guarded given multiple comorbidities. Rest of plan per hospitalist and other consultants. Thank you TANIA Reynolds for allowing me to participate in this patient's care. Further recommendations will depend on patient's clinical course. Please do not hesitate to contact me if you have any questions or concerns. This medical document was created using an electronic medical record system with [employer] dictation system. Although this document has been carefully reviewed, there may still be some phonetic and typographical errors. These areas are purely typographical due to imperfections of the software programs, and do not reflect any compromise in the patient's medical care. Plan discussed with: Patient, Other (RN, PHARMACY CLINICAL SPECIALIST) SHWETA MCCLAIN MD Aug 22, 2024 10:24
[2024-08-22] MEDS: predniSONE 20 MG TAB PO SCH (10:57)
[2024-08-22] MEDS: DOXYCYCLINE 100 MG TAB/CAP PO SCH (10:57)
[2024-08-22] MEDS: HEPARIN SODIUM (PORCINE) 5000 UNITS/ML 1ML VIAL SC SCH (10:58)
[2024-08-22] MEDS: PANTOPRAZOLE 40 MG/10 ML VIAL INJ IV SCH (10:58)
[2024-08-22 15:01] LABS: COVID19 ANTIGEN SOFIA FIA NEGATIVE (NEGATIVE)
[2024-08-22] MEDS ORDERED: hydrALAZINE HCL 20 MG/ML VL IV PRN (15:45)
[2024-08-22] MEDS: methylPREDNISolone SOD SUCC 40 MG/ML VL IV SCH (22:52)
[2024-08-23] VITALS (8 sets, daily range): BP systolic 157–181; BP diastolic 57–72; PULSE 92–124; RESP 16–19; TEMP 97.3–99.5; O2SAT 90–95
[2024-08-23 06:47] LABS: Chloride 102 mmol/L (98-107); Potassium 3.9 mmol/L (3.5-5.1); Sodium 141 mmol/L (136-145)
[2024-08-23 06:48] LABS: Anion Gap 7 (5-15); Calcium 9.5 mg/dL (8.7-10.4)
[2024-08-23 06:53] LABS: BUN/Creatinine Ratio 18.9 (10.0-20.0)
[2024-08-23 06:55] LABS: Blood Urea Nitrogen 27 mg/dL (9-23); Carbon Dioxide 32 mmol/L (20-31); Glucose 262 mg/dL (74-106)
[2024-08-23 08:04] LABS: Basophils # (auto) 0 10 ^3/uL (0-0.2); Basophils % (auto) 0.1 % (0.0-2.0); Eosinophils # (auto) 0 10 ^3/uL (0-0.8); Hemoglobin 12.2 g/dL (12.2-16.2); Lymphocytes # (auto) 0.3 10 ^3/uL (0.4-5.4); Lymphocytes % (auto) 4.7 % (10.0-50.0); Monocytes # (auto) 0.2 10 ^3/uL (0-1.3); Monocytes % (auto) 2.7 % (0.0-12.0); Neutrophils # (auto) 6.4 10 ^3/uL (1.6-8.6); White Blood Cell 6.9 10^3/uL (4.4-10.8)
[2024-08-23 08:07] LABS: Eosinophils % (auto) 0.1 % (0.0-7.0); Hematocrit 37.6 % (36.0-46.0); Mean Corpuscular Hemoglobin 26.6 pg (28.0-32.0); Mean Corpuscular Hgb Conc. 32.5 g/dL (32.0-36.0); Mean Corpuscular Volume 81.9 fL (80.0-100.0); Neutrophils % (auto) 92.4 % (37.0-80.0); Nucleated Red Blood Cells % 0.1 %; Platelet Count (auto) 227 10^3/uL (140-450); Red Blood Cells 4.59 10^6/uL (4.0-5.20); Red Cell Distribution Width 16.3 % (11.8-14.3)
[2024-08-23] MEDS: METOPROLOL SUCCINATE XL 50 MG TAB PO SCH (11:17)
[2024-08-23] MEDS: hydroCHLOROthiazide 25 MG TAB PO SCH (11:18)
[2024-08-23] MEDS: ASPirin-EC 81 mg tab PO SCH (11:18)
[2024-08-23] MEDS ORDERED: DEXTROSE (50%) 50ML SYRG IV PRN ×2 (11:45)
[2024-08-23] MEDS ORDERED: InsuLIN REG 1unit/0.01ml Soln (100units/ml) SC SCH ×2 (12:00→22:00)
[2024-08-23] MEDS ORDERED: ACCU-CHEK COMFORT CURVE STRIP VI SCH (12:00)
--- NOTE | 2024-08-23 16:05 | DVHPN2 ---
Subjective Overnight events noted. Patient is feeling much better. Reviewed: Care Plan Changes from previous H/P or p: No Changes Eyes: No Pain, No Vision change, No Conjunctivae inflammation, No Eyelid inflammation, No Other, No Redness ENT: No Ear pain, No Ear discharge, No Nose pain, No Nose discharge, No Nose congestion, No Mouth pain, No Mouth swelling, No Throat pain, No Throat swelling, No Other Cardiovascular: No Chest Pain, No Palpitations, No Orthopnea, No Paroxysmal Noc. Dyspnea, No Edema, No Lt Headedness, No Other Respiratory: Cough; No Dry; Shortness of breath; No SOB with excertion, No Wheezing, No Hemoptysis, No Pleuritic Pain, No Sputum, No Other Gastrointestinal: No Nausea, No Vomiting, No Abdominal Pain, No Diarrhea, No Constipation, No Melena, No Hematochezia, No Other Genitourinary: No Dysuria, No Frequency, No Incontinence, No Hematuria, No Retention, No Other Musculoskeletal: No other, No neck pain, No shoulder pain, No arm pain, No back pain, No hand pain, No leg pain, No foot pain Skin: No Rash, No Lesions, No Jaundice, No Bruising, No Other Objective Vitals Vital Signs Date Time Temp Pulse Resp B/P (MAP) Pulse Ox O2 Delivery O2 Flow Rate FiO2 08/23/24 13:00 98.5 107 19 165/63 (97) 91 98.5 08/23/24 10:00 3.0 08/23/24 10:00 Nasal Cannula* 32 Intake/Output Intake and Output 08/23/24 07:00 Intake Total 0 ml Balance 0 ml Intake Oral 0 ml # Voids 1 Exam HEENT pupils are reactive Neck is supple CV is S1-S2 regular rate and rhythm Diminished breath sounds bases GI positive bowel sound Extremity no edema TEAM [employer]IVER no motor deficit Medications Current Medications Medications Dose Ordered Sig/Luiz Route Start Time Stop Time Status Last Admin Dose Admin Docusate Sodium 100 mg BIDPRN PRN PO 08/22/24 01:00 Acetaminophen/ Hydrocodone Bitart 1 tab Q4HP PRN PO 08/22/24 01:00 Ondansetron HCl 4 mg Q4HP PRN IV 08/22/24 01:00 Nitroglycerin 0.4 mg Q5MINP PRN SL 08/22/24 01:00 Morphine Sulfate 2 mg Q30M PRN IV 08/22/24 01:00 Pantoprazole Sodium 40 mg DAILY IV 08/22/24 10:00 08/23/24 11:17 40 MG Doxycycline Monohydrate 100 mg BID PO 08/22/24 10:00 08/23/24 11:18 100 MG Heparin Sodium (Porcine) 5,000 units Q12HR SC 08/22/24 10:00 08/23/24 11:26 5,000 UNITS Aspirin 81 mg DAILY PO 08/23/24 10:00 08/23/24 11:18 81 MG Hydrochlorothiazide 25 mg DAILY PO 08/23/24 10:00 08/23/24 11:18 25 MG Metoprolol Succinate 50 mg DAILY PO 08/23/24 10:00 08/23/24 11:17 50 MG Hydralazine HCl 10 mg Q6HP PRN IV 08/22/24 15:45 Methylprednisolone Sodium Succinate 40 mg Q8HR IV 08/22/24 22:00 08/23/24 05:25 40 MG Diagnostic Test (Pha) 1 strip ACHS 08/23/24 17:00 Insulin Human Regular HS SC 08/23/24 22:00 Insulin Human Regular AC SC 08/23/24 17:00 Dextrose 50 ml UD PRN IV 08/23/24 11:45 Albuterol 2.5 mg Q6HPRN PRN NEB 08/23/24 11:45 Ipratropium [place] 0.5 mg Q6HPRN PRN NEB 08/23/24 11:45 Laboratory Results Laboratory Tests 08/23/24 05:53 Chemistry Test 08/23/24 05:53 Calcium Level 9.5 mg/dL (8.7-10.4) HgA1c, TSH Test 08/23/24 05:53 Hemoglobin A1c 8.1 % A1C (<5.7) H Assessment/Plan Assessment/Plan 89-year-old female with a known history of Alzheimer dementia, diabetes mellitus type 2, hypertension, dyslipidemia, peripheral neuropathy, chronic asthma needs represents the hospital with increasing shortness a breath found to have 1. Acute on chronic hypoxic respiratory failure secondary to acute asthma exacerbation 2. Acute asthma exacerbation acute 3. Bilateral atelectasis 4. Diabetes mellitus type 2 5. Hypertension 6. Dyslipidemia next 7. Peripheral neuropathy 8. Alzheimer dementia -spirometry, continue antibiotics, O2 supplementation -chest percussion therapy, discharge plan Plan discussed with: Patient, Other My Orders Orders - JACOB FOSS MD Procedure Category Date Status Time Methylprednisolone PHA 08/22/24 In Process Sod Succ (Solu Medrol 22:00 Glucose Blood PHA 08/23/24 In Process (Accu-Chek Comfort 17:00 Insulin R (Human) PHA 08/23/24 In Process (Insulin R) 22:00 Insulin R (Human) PHA 08/23/24 In Process (Insulin R) 17:00 Dextrose 50% Syringe PHA 08/23/24 In Process 11:45 Date of Service: Aug 23, 2024 Billing Provider: JACOB FOSS MD Common Visit Codes: NOT BILLABLE JACOB FOSS MD Aug 23, 2024 16:05
[2024-08-23] MEDS: HYDROcodone-ACET 5/325MG TAB PO PRN (16:23)
[2024-08-23] MEDS: InsuLIN REG 1unit/0.01ml Soln (100units/ml) SC SCH ×2 (16:26→21:40)
[2024-08-23] MEDS: ACCU-CHEK COMFORT CURVE STRIP VI SCH (17:00)
--- NOTE | 2024-08-23 21:21 | DVHPN2 ---
Progress Note - Dictate Date Seen: Aug 23, 2024 Medical Necessity Reason Pt with a Central, PICC or Fol: No Subjective Patient seen and examined at bedside. Remains on supplemental oxygen Overnight events reviewed. vital signs Vital Sign Date Time Temp Pulse Resp B/P (MAP) Pulse Ox O2 Delivery O2 Flow Rate FiO2 08/23/24 21:00 99.5 92 18 160/72 (101) 95 99.5 08/23/24 19:10 Nasal Cannula* 3 32 Total Intake and Output 08/22/24 08/22/24 08/23/24 15:00 23:00 07:00 Intake Total 0 ml 0 ml Balance 0 ml 0 ml medications Current Medications Medications Dose Ordered Sig/Luiz Route Start Time Stop Time Status Last Admin Dose Admin Docusate Sodium 100 mg BIDPRN PRN PO 08/22/24 01:00 Acetaminophen/ Hydrocodone Bitart 1 tab Q4HP PRN PO 08/22/24 01:00 08/23/24 16:23 1 TAB Ondansetron HCl 4 mg Q4HP PRN IV 08/22/24 01:00 Nitroglycerin 0.4 mg Q5MINP PRN SL 08/22/24 01:00 Morphine Sulfate 2 mg Q30M PRN IV 08/22/24 01:00 Pantoprazole Sodium 40 mg DAILY IV 08/22/24 10:00 08/23/24 11:17 40 MG Doxycycline Monohydrate 100 mg BID PO 08/22/24 10:00 08/23/24 11:18 100 MG Heparin Sodium (Porcine) 5,000 units Q12HR SC 08/22/24 10:00 08/23/24 11:26 5,000 UNITS Aspirin 81 mg DAILY PO 08/23/24 10:00 08/23/24 11:18 81 MG Hydrochlorothiazide 25 mg DAILY PO 08/23/24 10:00 08/23/24 11:18 25 MG Metoprolol Succinate 50 mg DAILY PO 08/23/24 10:00 08/23/24 11:17 50 MG Hydralazine HCl 10 mg Q6HP PRN IV 08/22/24 15:45 Methylprednisolone Sodium Succinate 40 mg Q8HR IV 08/22/24 22:00 08/23/24 16:22 40 MG Diagnostic Test (Pha) 1 strip ACHS 08/23/24 17:00 08/23/24 17:00 1 STRIP Insulin Human Regular HS SC 08/23/24 22:00 Insulin Human Regular AC SC 08/23/24 17:00 08/23/24 16:26 9 UNITS Dextrose 50 ml UD PRN IV 08/23/24 11:45 Albuterol 2.5 mg Q6HPRN PRN NEB 08/23/24 11:45 Ipratropium [place] 0.5 mg Q6HPRN PRN NEB 08/23/24 11:45 objective Gen.: Patient lying in bed in no apparent distress. On supplemental oxygen. Head: Normocephalic, atraumatic. Eyes: EOMI/PERRLA. Ears: Normal hearing. Normal anatomy. Neck/trachea: Trachea midline, supple. Nose: Normal external anatomy. Mouth: Moist mucous membranes. Chest: Decreased air entry bilaterally. Wheezing, improving. No rhonchi. Cardiovascular: Positive S1, positive S2. Regular rate and rhythm. Abdomen: Positive bowel sounds in all 4 quadrants. Soft, non-tender, non- distended. : Deferred. Rectal: Deferred. Skin: Warm, dry. Intact. Extremities: 2+ radial pulses bilaterally. No lower extremity edema. Neuro: Awake, alert, oriented x3. No gross motor or sensory deficits. Cranial nerves II through XII intact. Gait not assessed. laboratory and microbiology Laboratory Tests 08/23/24 05:53 Test 08/23/24 05:53 Range/Units Serum Glucose 262 H 74-106 mg/dL Assessment/Plan Impression: Acute on chronic hypoxic respiratory failure Asthma exacerbation Pneumonia Atelectasis Morbid obesity with a BMI 53.5 Acute kidney injury Events: Remains on supplemental oxygen, 2 LPM NC Taper O2 as tolerated Continue bronchodilators Continue IV steroids Incentive spirometry Improving wheezing. Updated daughter at bedside. Labs and imaging reviewed. Rest of plan as noted below. Plan: Chest x-ray imaging report reviewed. Hypoinflation. Bibasilar atelectasis. Mild pulmonary vascular congestion. Influenza type a and B negative. Supplemental oxygen Keep O2 saturation above 92%. Continue antibiotics. Continue bronchodilators. Continue steroid course. Monitor renal function. Monitor ins and outs. Monitor electrolytes. Supplement as necessary. DVT prophylaxis: Heparin subQ. GI prophylaxis with Protonix. Prognosis: Guarded given multiple comorbidities. Rest of plan per hospitalist and other consultants. Thank you CONFERENCE PRODUCER Reynolds for allowing me to participate in this patient's care. Further recommendations will depend on patient's clinical course. Please do not hesitate to contact me if you have any questions or concerns. This medical document was created using an electronic medical record system with [employer] dictation system. Although this document has been carefully reviewed, there may still be some phonetic and typographical errors. These areas are purely typographical due to imperfections of the software programs, and do not reflect any compromise in the patient's medical care. Plan discussed with: Patient, Other (SHAHLA Pratt) SHWETA MCCLAIN MD Aug 23, 2024 21:21
[2024-08-24] VITALS (10 sets, daily range): BP systolic 153–179; BP diastolic 61–75; PULSE 76–112; RESP 14–19; TEMP 97.9–98.6; O2SAT 90–98
[2024-08-24 08:17] LABS: Anion Gap 9 (5-15); Chloride 101 mmol/L (98-107); Potassium 3.7 mmol/L (3.5-5.1); Sodium 142 mmol/L (136-145)
[2024-08-24 08:19] LABS: Calcium 9.7 mg/dL (8.7-10.4); Carbon Dioxide 32 mmol/L (20-31)
[2024-08-24 08:24] LABS: BUN/Creatinine Ratio 24.5 (10.0-20.0)
[2024-08-24 08:25] LABS: Basophils # (auto) 0 10 ^3/uL (0-0.2); Basophils % (auto) 0.1 % (0.0-2.0); Eosinophils # (auto) 0 10 ^3/uL (0-0.8); Hemoglobin 12.7 g/dL (12.2-16.2); Mean Corpuscular Hgb Conc. 31.7 g/dL (32.0-36.0); Neutrophils # (auto) 7.7 10 ^3/uL (1.6-8.6); Red Blood Cells 4.85 10^6/uL (4.0-5.20); White Blood Cell 8.3 10^3/uL (4.4-10.8)
[2024-08-24 08:28] LABS: Hematocrit 40.2 % (36.0-46.0); Lymphocytes # (auto) 0.3 10 ^3/uL (0.4-5.4); Lymphocytes % (auto) 4.1 % (10.0-50.0); Mean Corpuscular Hemoglobin 26.3 pg (28.0-32.0); Mean Corpuscular Volume 82.9 fL (80.0-100.0); Monocytes # (auto) 0.2 10 ^3/uL (0-1.3); Monocytes % (auto) 2.9 % (0.0-12.0); Neutrophils % (auto) 92.9 % (37.0-80.0); Platelet Count (auto) 272 10^3/uL (140-450); Red Cell Distribution Width 16.5 % (11.8-14.3)
[2024-08-24 08:34] LABS: Blood Urea Nitrogen 34 mg/dL (9-23); Glucose 232 mg/dL (74-106)
[2024-08-24] MEDS: ALBUTEROL SULF 2.5 MG/0.5ML(0.5%) NEB SOLN NEB PRN (08:45)
[2024-08-24] MEDS: IPRATROPIUM BROM 0.5 MG/2.5ML INH SOL NEB PRN (08:45)
[2024-08-24] MEDS ORDERED: DOX100T PO (16:18)
--- NOTE | 2024-08-24 23:38 | DVHPN2 ---
Progress Note - Dictate Date Seen: Aug 24, 2024 Medical Necessity Reason Pt with a Central, PICC or Fol: No Subjective Patient seen and examined at bedside. Remains on supplemental oxygen Overnight events reviewed. vital signs Vital Sign Date Time Temp Pulse Resp B/P (MAP) Pulse Ox O2 Delivery O2 Flow Rate FiO2 08/24/24 21:00 98.6 91 18 168/74 (105) 96 98.6 08/24/24 19:25 Nasal Cannula 3.0 08/24/24 19:25 32 Total Intake and Output 08/23/24 08/23/24 08/24/24 15:00 23:00 07:00 Intake Total 120 ml 200 ml Balance 120 ml 200 ml medications Current Medications Medications Dose Ordered Sig/Luiz Route Start Time Stop Time Status Last Admin Dose Admin Docusate Sodium 100 mg BIDPRN PRN PO 08/22/24 01:00 Acetaminophen/ Hydrocodone Bitart 1 tab Q4HP PRN PO 08/22/24 01:00 08/23/24 16:23 1 TAB Ondansetron HCl 4 mg Q4HP PRN IV 08/22/24 01:00 Nitroglycerin 0.4 mg Q5MINP PRN SL 08/22/24 01:00 Morphine Sulfate 2 mg Q30M PRN IV 08/22/24 01:00 Pantoprazole Sodium 40 mg DAILY IV 08/22/24 10:00 08/24/24 09:19 40 MG Doxycycline Monohydrate 100 mg BID PO 08/22/24 10:00 08/24/24 21:52 100 MG Heparin Sodium (Porcine) 5,000 units Q12HR SC 08/22/24 10:00 08/24/24 22:00 5,000 UNITS Aspirin 81 mg DAILY PO 08/23/24 10:00 08/24/24 10:00 81 MG Hydrochlorothiazide 25 mg DAILY PO 08/23/24 10:00 08/24/24 10:00 25 MG Metoprolol Succinate 50 mg DAILY PO 08/23/24 10:00 08/24/24 12:15 50 MG Hydralazine HCl 10 mg Q6HP PRN IV 08/22/24 15:45 Methylprednisolone Sodium Succinate 40 mg Q8HR IV 08/22/24 22:00 08/24/24 21:52 40 MG Diagnostic Test (Pha) 1 strip ACHS 08/23/24 17:00 08/24/24 21:38 1 STRIP Insulin Human Regular HS SC 08/23/24 22:00 08/24/24 21:50 3 UNITS Insulin Human Regular AC SC 08/23/24 17:00 08/24/24 19:30 9 UNITS Dextrose 50 ml UD PRN IV 08/23/24 11:45 Albuterol 2.5 mg Q6HPRN PRN NEB 08/23/24 11:45 08/24/24 08:45 2.5 MG Ipratropium [place] 0.5 mg Q6HPRN PRN NEB 08/23/24 11:45 08/24/24 08:45 0.5 MG objective Gen.: Patient lying in bed in no apparent distress. On supplemental oxygen. Head: Normocephalic, atraumatic. Eyes: EOMI/PERRLA. Ears: Normal hearing. Normal anatomy. Neck/trachea: Trachea midline, supple. Nose: Normal external anatomy. Mouth: Moist mucous membranes. Chest: Decreased air entry bilaterally. Wheezing, improving. No rhonchi. Cardiovascular: Positive S1, positive S2. Regular rate and rhythm. Abdomen: Positive bowel sounds in all 4 quadrants. Soft, non-tender, non- distended. : Deferred. Rectal: Deferred. Skin: Warm, dry. Intact. Extremities: 2+ radial pulses bilaterally. No lower extremity edema. Neuro: Awake, alert, oriented x3. No gross motor or sensory deficits. Cranial nerves II through XII intact. Gait not assessed. laboratory and microbiology Laboratory Tests 08/24/24 06:47 Test 08/24/24 06:47 Range/Units Serum Glucose 232 H 74-106 mg/dL Assessment/Plan Impression: Acute on chronic hypoxic respiratory failure Asthma exacerbation Pneumonia Atelectasis Morbid obesity with a BMI 53.5 Acute kidney injury Events: Remains on supplemental oxygen, 2 LPM NC Taper O2 as tolerated Continue bronchodilators Continue IV steroids Incentive spirometry Improving wheezing. Updated daughter at bedside. Labs and imaging reviewed. Rest of plan as noted below. Plan: Chest x-ray imaging report reviewed. Hypoinflation. Bibasilar atelectasis. Mild pulmonary vascular congestion. Influenza type a and B negative. Supplemental oxygen Keep O2 saturation above 92%. Continue antibiotics. Continue bronchodilators. Continue steroid course. Monitor renal function. Monitor ins and outs. Monitor electrolytes. Supplement as necessary. DVT prophylaxis: Heparin subQ. GI prophylaxis with Protonix. Prognosis: Guarded given multiple comorbidities. Rest of plan per hospitalist and other consultants. Thank you TANIA Reynolds for allowing me to participate in this patient's care. Further recommendations will depend on patient's clinical course. Please do not hesitate to contact me if you have any questions or concerns. This medical document was created using an electronic medical record system with [employer] dictation system. Although this document has been carefully reviewed, there may still be some phonetic and typographical errors. These areas are purely typographical due to imperfections of the software programs, and do not reflect any compromise in the patient's medical care. SHWETA MCCLAIN MD Aug 24, 2024 23:38
[2024-08-25] VITALS (15 sets, daily range): BP systolic 102–157; BP diastolic 48–83; PULSE 75–122; RESP 14–23; TEMP 97.9–99.1; O2SAT 90–100
--- NOTE | 2024-08-25 10:37 | DVHDS2 ---
Discharge Summary Date of Admission Aug 22, 2024 at 00:55 Date of Discharge: Aug 24, 2024 Labs/Diagnostic Data: Laboratory Results Test 08/25/24 06:15 08/24/24 06:47 08/23/24 05:53 08/22/24 13:19 POC Glucose 133 mg/dl (70-106) White Blood Count 8.3 10^3/uL (4.4-10.8) Red Blood Count 4.85 10^6/uL (4.0-5.20) Hemoglobin 12.7 g/dL (12.2-16.2) Hematocrit 40.2 % (36.0-46.0) Mean Corpuscular Volume 82.9 fL (80.0-100.0) Mean Corpuscular Hemoglobin 26.3 pg (28.0-32.0) Mean Corpuscular Hemoglobin Concent 31.7 g/dL (32.0-36.0) Red Cell Distribution Width 16.5 % (11.8-14.3) Platelet Count 272 10^3/uL (140-450) Mean Platelet Volume 9.7 fL (6.9-10.8) Neutrophils (%) (Auto) 92.9 % (37.0-80.0) Lymphocytes (%) (Auto) 4.1 % (10.0-50.0) Monocytes (%) (Auto) 2.9 % (0.0-12.0) Eosinophils (%) (Auto) 0.0 % (0.0-7.0) Basophils (%) (Auto) 0.1 % (0.0-2.0) Neutrophils # (Auto) 7.7 10 ^3/uL (1.6-8.6) Lymphocytes # (Auto) 0.3 10 ^3/uL (0.4-5.4) Monocytes # (Auto) 0.2 10 ^3/uL (0-1.3) Eosinophils # (Auto) 0 10 ^3/uL (0-0.8) Basophils # (Auto) 0 10 ^3/uL (0-0.2) Nucleated Red Blood Cells 0.0 % Sodium Level 142 mmol/L (136-145) Potassium Level 3.7 mmol/L (3.5-5.1) Chloride Level 101 mmol/L (98-107) Carbon Dioxide Level 32 mmol/L (20-31) Anion Gap 9 (5-15) Blood Urea Nitrogen 34 mg/dL (9-23) Creatinine 1.39 mg/dL (0.550-1.02) Glomerular Filtration Rate Calc 37 mL/min (>90) BUN/Creatinine Ratio 24.5 (10.0-20.0) Serum Glucose 232 mg/dL (74-106) Calcium Level 9.7 mg/dL (8.7-10.4) Hemoglobin A1c 8.1 % A1C (<5.7) SARS-CoV-2 Antigen (Rapid) Negative (NEGATIVE) Test 08/21/24 23:00 08/21/24 21:50 08/21/24 20:43 Influenza Type A Antigen Negative (Negative) Influenza Type B Antigen Negative (Negative) Troponin I High Sensitivity 20 ng/L (</=34) Total Bilirubin 0.5 mg/dL (0.2-1.0) Aspartate Amino Transferase (AST) 15 U/L (13-40) Alanine Aminotransferase (ALT) < 9 U/L (7-40) Alkaline Phosphatase 97 U/L (46-116) B-Type Natriuretic Peptide 375.99 pg/mL (0-100) Total Protein 6.9 g/dL (5.7-8.2) Albumin 4.0 g/dL (3.2-4.8) Other Laboratory Tests 08/24/24 06:47 Final Diagnosis/Problems List 89-year-old female with a known history of Alzheimer dementia, diabetes mellitus type 2, hypertension, dyslipidemia, peripheral neuropathy, chronic asthma needs represents the hospital with increasing shortness a breath found to have 1. Acute on chronic hypoxic respiratory failure secondary to acute asthma exacerbation 2. Acute asthma exacerbation acute 3. Bilateral atelectasis 4. Diabetes mellitus type 2 5. Hypertension 6. Dyslipidemia next 7. Peripheral neuropathy 8. Alzheimer dementia Discharge Disposition: Home with Health Services Discharge Instruct/Medications Diet: Cardiac 2g Na,low cholest Activity: See Comment Activity comment: As tolerated Follow Up/Referral: Please follow up with the PCP in 1-2 weeks Follow up with Dr. Espinal in 1-2 weeks Medications: Doxycycline as prescribed Discharge Statement: "Patient was advised to return to the ER or call 911 if any headaches, dizziness, shortness of breath, chest pain, abdominal pain, bleeding, fevers, or worsening of medical condition. Patient was counseled about treatment plan, medications, possible side effects, patientverbalized understanding. All questions were answered to the best of my ability. This discharge took greater then 30 minutes in planning, reviewing documentation, counseling the patient, and discussing with other team members." ASSESSMENT ASSESSMENT Assessment 89-year-old female with a known history of Alzheimer dementia, diabetes mellitus type 2, hypertension, dyslipidemia, peripheral neuropathy, chronic asthma needs represents the hospital with increasing shortness a breath found to have 1. Acute on chronic hypoxic respiratory failure secondary to acute asthma exacerbation 2. Acute asthma exacerbation acute 3. Bilateral atelectasis 4. Diabetes mellitus type 2 5. Hypertension 6. Dyslipidemia next 7. Peripheral neuropathy 8. Alzheimer dementia JACOB FOSS MD Aug 25, 2024 10:37
[2024-08-25] MEDS ORDERED: METH4PAK PO (10:43)
--- NOTE | 2024-08-25 12:36 | ECG ---
[facility] Test Date: 2024-08-21 Test Time: 20:24:09 Pat Name: SATYA COLLIER Department: ER Room: 0247 A Gender: F Finisher Hand: GRACIE : 1935 Requested By: JAIME COPELAND Order Number: [id number] Reading MD: Burak Alatorre Measurements Intervals [place] Rate: 112 P: 60 OR: 155 QRS: -35 QRSD: 90 T: 16 QT: 376 QTc: 514 Interpretive Statements Sinus tachycardia Left atrial enlargement Inferior infarct, old Probable anterolateral infarct, old Prolonged QT interval Electronically Signed On 08-25-2024 17:54:28 PST by Burak Alatorre Please click the below link to view image of tracing.
[2024-08-25 15:15] LABS: Base Excess 6.6 mmol/L (-2.0-3.0)
--- NOTE | 2024-08-25 22:55 | DVHPN2 ---
Progress Note - Dictate Date Seen: Aug 25, 2024 Medical Necessity Reason Pt with a Central, PICC or Fol: No Subjective Patient seen and examined at bedside. Remains on supplemental oxygen Overnight events reviewed. vital signs Vital Sign Date Time Temp Pulse Resp B/P (MAP) Pulse Ox O2 Delivery O2 Flow Rate FiO2 08/25/24 17:33 98.2 116 19 128/57 (80) 100 98.2 08/25/24 13:11 Nasal Cannula 3.0 08/25/24 13:11 32 Total Intake and Output 08/24/24 08/24/24 08/25/24 15:00 23:00 07:00 Intake Total 580 ml 100 ml Balance 580 ml 100 ml objective Gen.: Patient lying in bed in no apparent distress. On supplemental oxygen. Head: Normocephalic, atraumatic. Eyes: EOMI/PERRLA. Ears: Normal hearing. Normal anatomy. Neck/trachea: Trachea midline, supple. Nose: Normal external anatomy. Mouth: Moist mucous membranes. Chest: Decreased air entry bilaterally. Wheezing, improving. No rhonchi. Cardiovascular: Positive S1, positive S2. Regular rate and rhythm. Abdomen: Positive bowel sounds in all 4 quadrants. Soft, non-tender, non- distended. : Deferred. Rectal: Deferred. Skin: Warm, dry. Intact. Extremities: 2+ radial pulses bilaterally. No lower extremity edema. Neuro: Awake, alert, oriented x3. No gross motor or sensory deficits. Cranial nerves II through XII intact. Gait not assessed. laboratory and microbiology Laboratory Tests 08/24/24 06:47 Test 08/24/24 06:47 Range/Units Serum Glucose 232 H 74-106 mg/dL Assessment/Plan Impression: Acute on chronic hypoxic respiratory failure Asthma exacerbation Pneumonia Atelectasis Morbid obesity with a BMI 53.5 Acute kidney injury Events: Remains on supplemental oxygen, 3 LPM NC Taper O2 as tolerated Assess and arrange for home O2. Continue bronchodilators Continue IV steroids Incentive spirometry Improving wheezing. Disposition per hospitalist. Labs and imaging reviewed. Rest of plan as noted below. Plan: Chest x-ray imaging report reviewed. Hypoinflation. Bibasilar atelectasis. Mild pulmonary vascular congestion. Influenza type a and B negative. Supplemental oxygen Keep O2 saturation above 92%. Continue antibiotics. Continue bronchodilators. Continue steroid course. Monitor renal function. Monitor ins and outs. Monitor electrolytes. Supplement as necessary. DVT prophylaxis: Heparin subQ. GI prophylaxis with Protonix. Prognosis: Guarded given multiple comorbidities. Rest of plan per hospitalist and other consultants. Thank you TANIA Reynolds for allowing me to participate in this patient's care. Further recommendations will depend on patient's clinical course. Please do not hesitate to contact me if you have any questions or concerns. This medical document was created using an electronic medical record system with [employer] dictation system. Although this document has been carefully reviewed, there may still be some phonetic and typographical errors. These areas are purely typographical due to imperfections of the software programs, and do not reflect any compromise in the patient's medical care. Plan discussed with: Patient, Other (SHAHLA Blair) SHWETA MCCLAIN MD Aug 25, 2024 22:55
== END 2024-08-25 17:54 | disposition home health service (06) | DRG 189 ==
LOC: EDBD 20:16 → ER 20:16 → TELE 08-22 00:55 → TELE-E-ADS 08-22 15:21 → TELE-EAST 08-23 07:21 → EAST 08-23 08:17
PROVIDERS: ADMIT Internal Medicine; ATTEND Internal Medicine
DX: J96.21 Acute and chronic respiratory failure with hypoxia (principal); J98.11 Atelectasis; N17.9 Acute kidney failure, unspecified; Z68.43 Body mass index [BMI] 50.0-59.9, adult; J45.901 Unspecified asthma with (acute) exacerbation; Z20.822 Contact with and (suspected) exposure to COVID-19; E11.42 Type 2 diabetes mellitus with diabetic polyneuropathy; E66.01 Morbid (severe) obesity due to excess calories; E78.5 Hyperlipidemia, unspecified; I10 Essential (primary) hypertension; G30.9 Alzheimer's disease, unspecified; F02.80 Dementia in other diseases classified elsewhere, unspecified severity, without behavioral disturbance, psychotic disturbance, mood disturbance, and anxiety; Z86.73 Personal history of transient ischemic attack (TIA), and cerebral infarction without residual deficits
CPT/HCPCS: 36415; 36600; 71045; 80048; 80053; 82805; 82962; 83036; 83880; 84484; 85025; 87426; 87804; 94640; 94667; 94668; 99291; G0378; J1815; J2470